=== PATIENT | male | born 1995 | race Two or more races ===

== ENCOUNTER 2024-08-11 23:18 | Emergency (ER) | payer MEDICAID, OTHER ==
[~2024-08-11] VITALS: Ht 180.3 cm; Wt 64.9 kg
[2024-08-11] MEDS ORDERED: IBUPROFEN 400 MG TABLET ONE (23:51)
[2024-08-11] MEDS: IBUPROFEN 400 MG TABLET PO ONE (23:52)
[2024-08-12 01:28] VITALS: BP 99/62; TEMP 98.1; O2SAT 78
== END 2024-08-12 01:29 | disposition home or self-care (01) ==
LOC: ER 23:25
DX: S39.012A Strain of muscle, fascia and tendon of lower back, initial encounter (principal); S16.1XXA Strain of muscle, fascia and tendon at neck level, initial encounter; S20.219A Contusion of unspecified front wall of thorax, initial encounter; Z60.2 Problems related to living alone; V89.2XXA Person injured in unspecified motor-vehicle accident, traffic, initial encounter; Y93.89 Activity, other specified; Y92.410 Unspecified street and highway as the place of occurrence of the external cause; Y99.8 Other external cause status
CPT/HCPCS: 71045-TC; 72125-TC; 72131-TC; 73010-TC